=== PATIENT | male | born 1975 | race Caucasian/White ===

== ENCOUNTER 2020-09-25 15:27 | Emergency (ER) | payer BC, SELFPAY ==
--- NOTE | ~2020-09-25 | XR_ITS ---
EXAMINATION: XR chest 2V DATE: 09/25/2020 16:26 INDICATION: Midsternal chest pain. TECHNIQUE: PA and lateral views of the chest were obtained. COMPARISON: None FINDINGS: Automated exposure control and iterative reconstruction technique were employed. The cardiomediastina l silhouette is normal. Mild thoracic spondylosis. Chronic appearing mild anterior wedging at T12. IMPRESSION: 1. No acute cardiopulmonary disease. Reviewed, dictated and finalized at location A.
--- NOTE | 2020-09-25 15:30 | ECG_ITS ---
Measurements Intervals [place] Rate: 111 P: 61 OK: 145 QRS: 46 QRSD: 96 T: -14 QT: 296 QTc: 403 Interpretive Statements SINUS TACHYCARDIA BORDERLINE ST-T WAVE ABNORMALITY- INFERIOR LEADS BASELINE ARTIFACT- II, V3 ABNORMAL ECG Electronically Signed On 09-25-2020 16:06:19 CDT by Layton Bullock D.O.
[2020-09-25 16:00] LABS: Basophils Percent Auto 0.5 % (0.2-1.2); Eosinophils Absolute Auto 0.1 K/mm3 (0-0.3); Eosinophils Percent Auto 1.1 % (0-4.4); Hematocrit 48.8 % (42.0-52.0); Hemoglobin 16.9 g/dL (14.0-18.0); Immature Granulocyte Absolute 0.01 K/mm3 (0.00-0.031); Immature Granulocyte Percent A 0.2 % (0-0.5); Lymphocytes Absolute Auto 1.74 K/mm3 (0.9-3.2); Lymphocytes Percent Auto 27.3 % (18.3-44.2); Mean Corpuscular HGB Conc 34.6 g/dl (32-36); Mean Corpuscular Hemoglobin 31.4 pg (26-34); Mean Corpuscular Volume 90.5 fl (80-100); Monocytes Absolute Auto 0.7 K/mm3 (0.1-0.6); Monocytes Percent Auto 10.4 % (2.6-8.5); Neutrophils Absolute Auto 3.9 K/mm3 (1.3-6.7); Neutrophils Percent Auto 60.5 % (45.5-73.1); Platelet Count Result 177 k/mm3 (150-375); Red Blood Count 5.39 M/mm3 (4.6-6.20); White Blood Count 6.4 K/mm3 (4.5-10.0)
[2020-09-25 16:11] VITALS: BP 129/84; PULSE 96; RESP 18; TEMP 36.9; O2SAT 98
[2020-09-25 16:13] LABS: INR 0.9; Prothrombin Time 11.9 Seconds (11.1-14.7)
[2020-09-25 16:14] LABS: Partial Thromboplastin Time 21.7 SECONDS (22.3-36.8)
[2020-09-25 16:17] LABS: Anion Gap 10 mmol/L (8-16); Blood Urea Nitrogen 17 mg/dL (9-20); Carbon Dioxide 30 mmol/L (22-30); Chloride 101 mmol/L (98-107); Estimated CRCL calculation 78 ml/min; Estimated Glomerular Filt Rate > 60; Glucose 92 mg/dL (65-110); Potassium 3.5 mmol/L (3.4-5.0); Sodium 141 mmol/L (137-145)
[2020-09-25 16:30] LABS: Troponin I < 0.012 ng/mL (0.000-0.034)
[2020-09-25 18:48] VITALS: BP 150/91; PULSE 77; RESP 15; O2SAT 99
[2020-09-25 19:24] LABS: Troponin I < 0.012 ng/mL (0.000-0.034)
[2020-09-25] MEDS: ASPIRIN 81 MG CHEWABLE TABLET 324 MG PO (19:30)
--- NOTE | 2020-09-25 19:38 | ED.CHESTPAIN ---
HPI - Chest Pain General Chief Complaint: Chest Pain Stated Complaint: CHEST PAIN Time Seen by Provider: 09/25/20 19:11 History of Present Illness HPI narrative: Squeezing left sided chest pain since about 1529 today. Assocaited with tingling in left hand and intermittent SOB. Symptoms are improveing. Related Data Allergies Allergy/AdvReac Type Severity Reaction Status Date / Time No Known Drug Allergies Allergy Unknown Verified 06/09/15 10:52 Review of Systems Review of Systems: All systems reviewed & are unremarkable except as noted in HPI and below [facility] Past Medical History Medical History (Updated 09/27/20 @ 17:41 by Kyler Ling MD) HTN (hypertension) Social History Social History (Updated 09/27/20 @ 17:41 by Kyler Ling MD) Smoking status: Never smoker Exam Const: General: healthy appearing and no acute distress Orientation/consciousness: patient oriented x3 HENMT: Head: normal to inspection Neck: Neck: normal visual inspection Chest: Chest palpation & inspection: tenderness Resp: Effort & Inspection: normal respiratory effort Auscultation: clear to auscultation bilaterally, no rales, no rhonchi and no wheezes Cardio: Jugular venous distension: no JVD Rate: regular rate Rhythm: regular rhythm Heart sounds: no murmurs GI: Inspection: non-distended GI Palp: Yes Soft to palpation and No Tenderness to palpation present (GI) Skin: General skin exam: normal color Neuro: General: patient oriented x3 and moves all extremities Speech: normal speech Extrem: General: no edema Psych: Appearance: well kempt Affect: normal affect Course Vital Signs Vital signs: Vital Signs Temperature 36.9 C 09/25/20 16:11 Pulse Rate 96 09/25/20 16:11 Respiratory Rate 18 09/25/20 16:11 Blood Pressure 129/84 09/25/20 16:11 Pulse Oximetry 98 09/25/20 16:11 Temperature 36.9 C 09/25/20 16:11 Pulse Rate 70 09/25/20 20:08 Respiratory Rate 18 09/25/20 20:08 Blood Pressure 131/91 H 09/25/20 20:08 Pulse Oximetry 99 09/25/20 20:08 MDM - Chest Pain Differential Diagnosis Differential diagnosis: Likely unstable angina pectoris, atypical chest pain and st elevation myocardial infarction Medical Records Data Attestation: I reviewed the patient's medical records. Lab Data Attestation: I reviewed the patient's lab results. Result diagrams: 09/25/20 15:44 09/25/20 15:44 Labs: Lab Results 09/25/20 09/25/20 09/25/20 Range/Units 15:44 15:44 15:44 WBC 6.4 (4.5-10.0) K/mm3 RBC 5.39 (4.6-6.20) M/mm3 Hgb 16.9 (14.0-18.0) g/dL Hct 48.8 (42.0-52.0) % MCV 90.5 (80-100) fl MCH 31.4 (26-34) pg MCHC 34.6 (32-36) g/dl RDW 12.0 (11.5-14.5) % Plt Count 177 (150-375) k/mm3 MPV 10.0 (7.4-10.4) fl Immature Gran % (Auto) 0.2 (0-0.5) % Neut % (Auto) 60.5 (45.5-73.1) % Lymph % (Auto) 27.3 (18.3-44.2) % [place] % (Auto) 10.4 H (2.6-8.5) % Eos % (Auto) 1.1 (0-4.4) % Baso % (Auto) 0.5 (0.2-1.2) % Lymph # (Auto) 1.74 (0.9-3.2) K/mm3 [place] # (Auto) 0.7 H (0.1-0.6) K/mm3 Eos # (Auto) 0.1 (0-0.3) K/mm3 Baso # (Auto) 0.0 (0.0-0.1) K/mm3 Abs Immat Gran (auto) 0.01 (0.00-0.031) K/mm3 Absolute Neuts (auto) 3.9 (1.3-6.7) K/mm3 Absolute Nucleated RBC 0.0 (0.0-0.012) K/mm3 Nucleated RBC % 0.0 (0.0-0.2) % PT 11.9 (11.1-14.7) Seconds INR 0.9 APTT 21.7 L (22.3-36.8) SECONDS Sodium 141 (137-145) mmol/L Potassium 3.5 (3.4-5.0) mmol/L Chloride 101 (98-107) mmol/L Carbon Dioxide 30 (22-30) mmol/L Anion Gap 10 (8-16) mmol/L BUN 17 (9-20) mg/dL Creatinine 1.20 (0.7-1.3) mg/dL Estim Creat Clear Calc 78 ml/min Estimated GFR > 60 (59 - ) Glucose 92 (65-110) mg/dL Calcium 10.0 (8.4-10.2) mg/dL Troponin I < 0.012 (0.000-0.034) ng/mL 09/25/20 Range/Units 18:54 WBC (4.5-10.0
[2020-09-25 20:08] VITALS: BP 131/91; PULSE 70; RESP 18; O2SAT 99
== END 2020-09-25 20:10 | disposition home or self-care (01) ==
PROVIDERS: Emergency Medicine; Emergency Provider Emergency Medicine; PCP Internal Medicine
DX: R07.9 Chest pain, unspecified (principal); I10 Essential (primary) hypertension; R00.0 Tachycardia, unspecified; R94.31 Abnormal electrocardiogram [ECG] [EKG]
CPT/HCPCS: 36415; 71046; 80048; 84484; 85025; 85610; 85730; 93005; 99284; A9270

== ENCOUNTER 2022-10-26 10:31 | Emergency (ER) | payer BC, SELFPAY ==
--- NOTE | ~2022-10-26 | XR_ITS ---
XR chest 2V DATE: 10/26/2022 11:03 INDICATION: Chest cold for 5 days TECHNIQUE: 2 views COMPARISON: 09/25/2020 2 view chest FINDINGS: Normal heart size. No hilar or mediastinal enlargement. No pulmonary infiltrate or consolid ation, pleural effusion or pulmonary vascular congestion or pneumothorax. Mild degenerative change of the thoracic spine. IMPRESSION: No active cardiopulmonary disease Reviewed, dictated and finalized at location A.
[2022-10-26 10:36] VITALS: BP 127/84; PULSE 93; RESP 20; TEMP 36.3; O2SAT 100
--- NOTE | 2022-10-26 11:13 | ED.GENADULT ---
HPI - General Adult General Chief complaint: Upper Respiratory Infection Stated complaint: chest cold Source: patient Mode of arrival: ambulatory Limitations: no limitations History of Present Illness HPI narrative: Patient presents for evaluation of sick symptoms for last 10 days. Symptoms include sinus/chest congestion, sore throat and mild cough. No fever, chills, nausea, vomiting, diarrhea or SOB. No recent sick contacts to his knowledge. He says primary care provider 5 days ago was given a prescription for doxycycline, which he has been taking as directed. He has also tried mucinex for his symptoms. He states his throat is usually on painful at night. He does not smoke. Related Data Home Medications Medication Instructions Recorded Confirmed benzonatate 100 mg capsule 100 mg PO DIRECTED 10/26/22 10/26/22 doxycycline hyclate 100 mg capsule 100 mg PO BID 10/26/22 10/26/22 escitalopram oxalate 10 mg tablet 10 mg PO DAILY 10/26/22 10/26/22 lisinopril 5 mg tablet 5 mg PO DAILY 10/26/22 10/26/22 pantoprazole 40 mg tablet,delayed 40 mg PO DAILY 10/26/22 10/26/22 release Allergies Allergy/AdvReac Type Severity Reaction Status Date / Time No Known Drug Allergies Allergy Unknown Other Verified 10/26/22 10:39 Review of Systems Review of Systems: CONSTITUTIONAL: Reports fever and chills. EYES: Denies visual changes, redness, or discharge. ENT: Reports sinus congestion and sore throat. Denies otalgia. CARDIOVASCULAR: Denies chest pain, palpitations, or edema. RESPIRATORY: Reports cough. Denies shortness of breath. GASTROINTESTINAL: Denies abdominal pain, nausea, vomiting, or diarrhea. GENITOURINARY: Denies dysuria or hematuria. SKIN: Denies rash or itching. MUSCULOSKELETAL: Denies back pain, joint pain, or myalgia. NEUROLOGIC: Denies headache, numbness, dizziness, or weakness. PSYCHIATRIC: Denies anxiety or depression. [facility]LY [facility] Past Medical History Medical History Depression HTN (hypertension) Surgical History Surgical History No pertinent past surgical history Family History Family History Mother Family history non-contributory Social History Social History Smoking status: Never smoker Substance use: never Living arrangements: with family Gender identity (if verbalized by the patient): Male Sexual Orientation (if Verbalized by the Patient): Straight or Heterosexual Spiritual care concerns: No Exam Narrative: GENERAL: Well-appearing, well-nourished, and in no acute distress. HEAD: Normocephalic, atraumatic. EYES: PERRLA and EOMI. ENT: Nares clear, no rhinorrhea or epistaxis. Mucous membranes moist. Oropharynx without tonsillar hypertrophy exudate or other lesions. Bilateral TMs pearly de oliveira nonbulging NECK: Supple. No adenopathy or masses. No carotid bruits or JVD CHEST: Clear to auscultation. No respiratory distress. No wheezes rales or rhonchi HEART: Regular rate and rhythm. No murmur heard. Normal peripheral pulses. ABDOMEN: Soft, nontender, nondistended, normal active bowel sounds. EXTREMITIES: Normal range of motion. No edema. SKIN: Warm, dry, no rash. NEURO: No focal deficits. Alert and oriented x3. PSYCH: Normal mood and affect. Course Course Emergency Course: This is a 46-year-old male who presented for evaluation of sick symptoms. Influenza A positive. Strep and COVID negative. Chest x-ray negative. Will discharge with Tamiflu. Would be reasonable to finish course of doxycycline. Follow-up with primary provider go to the emergency department for worsening symptoms. Patient in agreement with plan of care. Level of Care: Express Care Visit Vital Signs Vital signs: Vital Signs Temperature 36.3 C L 10/26/22 10:36
== END 2022-10-26 11:47 | disposition home or self-care (01) ==
PROVIDERS: Emergency Provider Nurse Practitioner; PCP Internal Medicine
DX: J10.1 Influenza due to other identified influenza virus with other respiratory manifestations (principal); Z20.822 Contact with and (suspected) exposure to COVID-19; I10 Essential (primary) hypertension; F32.A Depression, unspecified
CPT/HCPCS: 71046; 87081; 87426; 87804; 87880; 99213; C9803; G0463

== ENCOUNTER 2024-03-29 13:07 | Emergency (ER) | payer BC, SELFPAY ==
[2024-03-29 13:16] VITALS: BP 159/91; PULSE 80; RESP 18; TEMP 36.4; O2SAT 99
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
--- OUTSIDE RECORDS SUMMARY | 2024-03-29 13:43 | XMS_ITS | Encounter Summary ---
Author Organization [facility] Address [address] [facility] [place] [address] Care Team Providers Care Belt Lacer Name Role Phone Scar Olmedo MD Primary Care Provider Encounter Details Date Type Department Care Team (Late st Contact Info) Description 08/08/2017 Ophth Exam [facility] [address] [place] [phone] Radha Peoples MD [address] [place] [phone] Social History Tobacco Use Types Packs/Day Years Used Date Smoking Tobacco: Never Smokeless Tobacco: Never Alcohol Use Standard Drinks/Week Comments Yes 0 (1 standard drink = 0.6 oz pur e alcohol) occasional Sex and Gender Information Value Date Recorded Sex Assigned at Not on file Gender Identity Not on file Sexual Orientation Not on file documented as of this encounter Plan of Treatment Not on file documented as of this encounter Visit Diagnoses Not on filedocumented in this encounter Care Teams Belt Lacer Relationship Specialty Start Date End Date Scar Olmedo MD [address] [place] [phone] PCP - General Internal Medicine 06/09/17 documented as of this encounter
--- OUTSIDE RECORDS SUMMARY | 2024-03-29 13:43 | XMS_ITS | Encounter Summary ---
Author Organization [facility] Address [address] [place] [address] Care Team Providers Care Licensed Optician Name Role Phone Scar Olmedo MD Primary Care Provider Encounter Details Date Type Department Care Team (Late st Contact Info) Description 08/10/2017 Ophth Exam [facility] [address] [place] [address] [phone] Sabine Downey MD [address] [place] [phone] Social History Tobacco Use Types Packs/Day Years Used Date Smoking Tobacco: Never Smokeless Tobacco: Never Alcohol Use Standard Drinks/Week Comments Yes 0 (1 standard drink = 0.6 oz pur e alcohol) occasional Sex and Gender Information Value Date Recorded Sex Assigned at Not on file Gender Identity Not on file Sexual Orientation Not on file documented as of this encounter Functional Status Functional Status Response Date of Assess ment Is person deaf or have serious hearing difficult y? No 08/09/2017 Is person blind or have serious difficulty seein g? No 08/09/2017 Does person have serious dif ficulty walking/climbing stairs? Yes 08/09/2017 Does person have difficulty dressing/bathing? No 08/09/2017 Does person have difficulty doing errands alone? Yes 08/09/2017 Cognitive Status Response Date of Assessm ent Does person have difficulty concentrating/remembering/making decisions? No 08/09/2017 documented as of this encounter Plan of Treatment Not on file documented as of this encounter Visit Diagnoses Not on filedocumented in this encounter Care Teams Licensed Optician Relationship Specialty Start Date End Date Scar Olmedo MD [address] [phone] PCP - General Internal Medicine 06/09/17 documented as of this encounter
--- OUTSIDE RECORDS SUMMARY | 2024-03-29 13:43 | XMS_ITS | Encounter Summary ---
Author Organization [facility] Address [address] [facility] [place] [address] Care Team Providers Care General Manager In Training Name Role Phone Scar Olmedo MD Primary Care Provider Encounter Details Date Type Department Care Team (Late st Contact Info) Description 08/09/2017 Ophth Exam [facility] [address] [place] [phone] Clara Pierre MD [address] [place] [phone] Social History Tobacco Use Types Packs/Day Years [...] on filedocumented in this encounter Care Teams General Manager In Training Relationship Specialty Start Date End Date Scar Olmedo MD [address] [place] [phone] PCP - General Internal Medicine 06/09/17 documented as of this encounter
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
--- OUTSIDE RECORDS SUMMARY | 2024-03-29 13:44 | XMS_ITS | Patient Health Summary ---
Author Organization [facility] Address [address] [place] [address] Care Team Providers Care Eligibility Clerk Name Role Phone Scar Olmedo MD Primary Care Provider Note from [facility],non-owned Affiliates and Associated Physician Practices is amultiple site organization consisting of ambulatory clinics and hospital sitesin [place], [place], [place] and [place]. This disclosure is being madepursuant to the Care Everywhere program and may not contain all information available regarding this patient. Last updated 17.[facility] Allergies No known active allergies Medications * Be aware that medications may not be up to date on this document. Alwaysverify current medications with the patient. * fluticasone propionate (FLONASE) 50 MCG/ACT nasal spray(Started 12/21/2017) Chama 1 spray into each nostril once daily 4 refills remaining * buPROPion XL 24hr (WELLBUTRIN-XL) 150 MG tablet(Started 04/05/2018) * zolpidem CR (AMBIEN CR) 6.25 MG tablet(Started 06/09/2018) Take 1 tablet by mouth nightly as needed for Insomnia Active Problems Problem Noted Date Diagnosed Date [...] Unknown and unspecified causes of morbidity 06/30 Dacryocystitis of right lacrimal sac Immunizations * TDAP (7yrs+)(Given 03/26/2017) Social History Tobacco Use Types Packs/Day Years [...] Mass Index 29.69 08/09/2018 9:04 AM CDT Medical Devices Implanted Type Area Linter Tender Device Identifier Shelf Expiration Date Model / Serial / Lot Stentube Lacrimal Intubation Set Large Diameter Implanted:Qty: 1 on 08/11/2017 by Migdalia Caruso MD at [facility] Right: Eye 04/01/2018 [id number] / / [id number] 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 [employer] Procedures * XR FEMUR RIGHT 2VW(Performed 06/09/2018) Performed for Closed fracture of shaft of right femur with routine healing, unspecified fracture morphology, subsequent encounter * XR ANKLE RIGHT 3VW OR MORE(Performed 06/09/2018) Performed for Open nondisplaced fracture of right talus with routine healing, unspecified fracture morphology, subsequent encounter * WY NASAL ENDOSCOPY,DX(Performed 06/07/2018) Performed for Nldo, acquired (nasolacrimal duct obstruction), right * XR ANKLE RIGHT 3VW OR MORE(Performed 03/31/2018) Performed for Open nondisplaced fracture of right talus with routine healing, unspecified fracture morphology, subsequent encounter * XR FEMUR RIGHT 2VW(Performed 03/31/2018) Performed for Closed fracture of shaft of right femur with routine healing, unspecified fracture morphology, subsequent encounter * XR FEMUR RIGHT 2VW(Performed 01/27/2018) Performed for Closed fracture of shaft of right femur with routine healing, unspecified fracture morphology, subsequent encounter * XR ANKLE RIGHT 3VW OR MORE(Performed 01/27/2018) Performed for Open nondisplaced fracture of right talus with routine healing, unspecified fracture morphology, subsequent encounter * WY NASAL ENDOSCOPY,DX(Performed 12/21/2017) Performed for Nasal crusting, Nasal congestion * XR FEMUR RIGHT 2VW(Performed 10/28/2017) Performed for Closed fracture of shaft of right femur with routine healing, unspecified fracture morphology, subsequent encounter * XR ANKLE RIGHT 3VW OR MORE(Performed 10/28/2017) Performed for Open nondisplaced fracture of right talus with routine healing, unspecified fracture morphology, subsequent encounter * WY NASAL ENDOSCOPY,DX(Performed 09/17/2017) Performed for Right epiphora * XR FEMUR RIGHT 2VW(Performed 08/26/2017) Performed for Open displaced fracture of posterior process of right talus with routine healing * XR ANKLE RIGHT 3VW OR MORE(Performed 08/26/2017) Performed for Open displaced fracture of posterior process of right talus with routine healing * WY ENDO NASAL SINUS BX POLYP DEBRID RT SIDE(Performed 08/17/2017) Performed for Nasal crusting * ENDOTRACHEAL TUBE NOTE(Performed 08/13/2017) * CULTURE EYE+GRAM STAIN(Performed 08/11/2017) * CULTURE ANAEROBE(Performed 08/11/2017) * CULTURE EYE+GRAM STAIN(Performed 08/11/2017) * SEPTOPLASTY(Performed 08/11/2017) Performed for Dacryocystitis of right lacrimal sac * CBC W/O DIFFERENTIAL(Performed 08/09/2017) * CULTURE FUNGUS OTHER+FUNGUS SMEAR(Performed 08/08/2017) * CULTURE ANAEROBE(Performed 08/08/2017) * CULTURE EYE+GRAM STAIN(Performed 08/08/2017) * CT HEAD WO CONTRAST(Performed 08/08/2017) Performed for Facial pain * CT FACIAL BONES W CONTRAST(Performed 08/08/2017) Performed for Facial pain * BASIC METABOLIC PANEL (CALCIUM TOTAL)(Performed 08/08/2017) * CBC W AUTO DIFFERENTIAL(Performed 08/08/2017) * XR ANKLE RIGHT 3VW OR MORE(Performed 07/01/2017) Performed for Open displaced fracture of posterior process of right talus with routine healing * XR FEMUR RIGHT 2VW(Performed 07/01/2017) Performed for Closed fracture of shaft of right femur with routine healing, unspecified fracture morphology, subsequent encounter * REMOVAL EXTERNAL FIXATION LOWER EXTREMITY(Performed 06/09/2017) Performed for Diagnosis unknown * CBC W AUTO DIFFERENTIAL(Performed 06/09/2017) Performed for Arthralgia of right ankle * XR ANKLE RIGHT 3VW OR MORE(Performed 05/27/2017) * XR FEMUR RIGHT 2VW(Performed 05/27/2017) * XR FEMUR RIGHT 2VW(Performed 04/29/2017) * XR ANKLE RIGHT 3VW OR MORE(Performed 04/29/2017) * XR ANKLE RIGHT 3VW OR MORE(Performed 04/09/2017) * XR FEMUR RIGHT 2VW(Performed 04/09/2017) * CBC W AUTO DIFFERENTIAL(Performed 04/09/2017) * TYPE + SCREEN PANEL(Performed 04/09/2017) * CBC W AUTO DIFFERENTIAL(Performed 04/09/2017) * XR CHEST 2VW(Performed 04/02/2017) * CBC W/O DIFFERENTIAL(Performed 04/02/2017) * PHOSPHORUS BLOOD(Performed 04/02/2017) * MAGNESIUM BLOOD(Performed 04/02/2017) * BASIC METABOLIC PANEL (CALCIUM TOTAL)(Performed 04/02/2017) * TYPE + SCREEN PANEL(Performed 04/01/2017) * PHOSPHORUS BLOOD(Performed 04/01/2017) * MAGNESIUM BLOOD(Performed 04/01/2017) * BASIC METABOLIC PANEL (CALCIUM TOTAL)(Performed 04/01/2017) * CBC W/O DIFFERENTIAL(Performed 04/01/2017) * PTT [facility](Performed 04/01/2017) * PT-INR [facility](Performed 04/01/2017) * VITAMIN D 25-HYDROXY(Performed 03/31/2017) * PHOSPHORUS BLOOD(Performed 03/31/2017) * MAGNESIUM BLOOD(Performed 03/31/2017) * BASIC METABOLIC PANEL (CALCIUM TOTAL)(Performed 03/31/2017) * CBC W/O DIFFERENTIAL(Performed 03/31/2017) * GLUCOSE ACCUCHECK(Performed 03/30/2017) * GLUCOSE ACCUCHECK(Performed 03/30/2017) * PHOSPHORUS BLOOD(Performed 03/30/2017) * MAGNESIUM BLOOD(Performed 03/30/2017) * BASIC METABOLIC PANEL (CALCIUM TOTAL)(Performed 03/30/2017) * CBC W/O DIFFERENTIAL(Performed 03/30/2017) * CALCIUM IONIZED WHOLE BLOOD(Performed 03/30/2017) * GLUCOSE ACCUCHECK(Performed 03/29/2017) * GLUCOSE ACCUCHECK(Performed 03/29/2017) * GLUCOSE ACCUCHECK(Performed 03/29/2017) * CT ANKLE RIGHT WO CONTRAST(Performed 03/29/2017) * GLUCOSE ACCUCHECK(Performed 03/29/2017) * GLUCOSE ACCUCHECK(Performed 03/29/2017) * XR CHEST 1VW PORTABLE(Performed 03/29/2017) * CBC W/O DIFFERENTIAL(Performed 03/29/2017) * GLUCOSE ACCUCHECK(Performed 03/29/2017) * GLUCOSE ACCUCHECK(Performed 03/29/2017) * PHOSPHORUS BLOOD(Performed 03/29/2017) * BASIC METABOLIC PANEL (CALCIUM TOTAL)(Performed 03/29/2017) * MAGNESIUM BLOOD(Performed 03/29/2017) * CBC W/O DIFFERENTIAL(Performed 03/29/2017) * BLOOD GASES ARTERIAL(Performed 03/29/2017) * CALCIUM IONIZED WHOLE BLOOD(Performed 03/29/2017) * GLUCOSE ACCUCHECK(Performed 03/28/2017) * CBC W/O DIFFERENTIAL(Performed 03/28/2017) * GLUCOSE ACCUCHECK(Performed 03/28/2017) * CBC W/O DIFFERENTIAL(Performed 03/28/2017) * GLUCOSE ACCUCHECK(Performed 03/28/2017) * CBC W/O DIFFERENTIAL(Performed 03/28/2017) * GLUCOSE ACCUCHECK(Performed 03/28/2017) * XR CHEST 1VW PORTABLE(Performed 03/28/2017) * GLUCOSE ACCUCHECK(Performed 03/28/2017) * PHOSPHORUS BLOOD(Performed 03/27/2017) * BASIC METABOLIC PANEL (CALCIUM TOTAL)(Performed 03/27/2017) * MAGNESIUM BLOOD(Performed 03/27/2017) * CBC W/O DIFFERENTIAL(Performed 03/27/2017) * BLOOD GASES ARTERIAL(Performed 03/27/2017) * CALCIUM IONIZED WHOLE BLOOD(Performed 03/27/2017) * GLUCOSE ACCUCHECK(Performed 03/27/2017) * CBC W/O DIFFERENTIAL(Performed 03/27/2017) * GLUCOSE ACCUCHECK(Performed 03/27/2017) * CBC W/O DIFFERENTIAL(Performed 03/27/2017) * BLOOD GASES ARTERIAL(Performed 03/27/2017) * CBC W/O DIFFERENTIAL(Performed 03/27/2017) * URINALYSIS W/MICROSCOPIC NO CULTURE(Performed 03/27/2017) * DRUG ABUSE PANEL 10-20+ETHANOL URINE NO CONFIRM(Performed 03/27/2017) * XR CHEST 1VW PORTABLE(Performed 03/27/2017) * CBC W/O DIFFERENTIAL(Performed 03/27/2017) * BASIC METABOLIC PANEL (CALCIUM TOTAL)(Performed 03/27/2017) * MAGNESIUM BLOOD(Performed 03/27/2017) * PHOSPHORUS BLOOD(Performed 03/27/2017) * BLOOD GASES ARTERIAL(Performed 03/27/2017) * CALCIUM IONIZED WHOLE BLOOD(Performed 03/27/2017) * XR CHEST 1VW PORTABLE(Performed 03/26/2017) * XR ABDOMEN KUB PORTABLE(Performed 03/26/2017) * CALCIUM IONIZED WHOLE BLOOD(Performed 03/26/2017) * BLOOD GASES ARTERIAL(Performed 03/26/2017) * BASIC METABOLIC PANEL (CALCIUM TOTAL)(Performed 03/26/2017) * PHOSPHORUS BLOOD(Performed 03/26/2017) * MAGNESIUM BLOOD(Performed 03/26/2017) * CBC W/O DIFFERENTIAL(Performed 03/26/2017) * XR FEMUR RIGHT 2VW(Performed 03/26/2017) * XR ANKLE RIGHT 3VW OR MORE(Performed 03/26/2017) * BLOOD GASES ART COMPLETE [facility] OR(Performed 03/26/2017) * SODIUM WHOLE BLOOD(Performed 03/26/2017) * LACTIC ACID WHOLE BLOOD(Performed 03/26/2017) * GLUCOSE WHOLE BLOOD(Performed 03/26/2017) * POTASSIUM WHOLE BLD(Performed 03/26/2017) * CHLORIDE WHOLE BLOOD(Performed 03/26/2017) * CALCIUM IONIZED WHOLE BLOOD(Performed 03/26/2017) * BLOOD GASES ARTERIAL(Performed 03/26/2017) * CULTURE ANAEROBE(Performed 03/26/2017) * CULTURE AEROBIC(Performed 03/26/2017) * BLOOD GASES ART COMPLETE [facility] OR(Performed 03/26/2017) * CT 3D RECON WO INDEPENDENT WKSN(Performed 03/26/2017) * XR TIBIA FIBULA RIGHT 2VW(Performed 03/26/2017) * XR ANKLE RIGHT 2VW(Performed 03/26/2017) * XR FEMUR RIGHT 2VW(Performed 03/26/2017) * XR PELVIS 1 OR 2VW(Performed 03/26/2017) * CT THORACIC SPINE WO CONTRAST(Performed 03/26/2017) * CT FACIAL BONES WO CONTRAST(Performed 03/26/2017) * CT CERVICAL SPINE WO CONTRAST(Performed 03/26/2017) * CT LUMBAR SPINE WO CONTRAST(Performed 03/26/2017) * CT HEAD WO CONTRAST(Performed 03/26/2017) * CT CHEST ABDOMEN PELVIS W CONT(Performed 03/26/2017) * CROSSMATCH RBC LEUKOREDUCED(Performed 03/26/2017) * PREPARE PLATELET PHERESIS UNIT(S)(Performed 03/26/2017) * CROSSMATCH RBC LEUKOREDUCED(Performed 03/26/2017) * CROSSMATCH RBC LEUKOREDUCED(Performed 03/26/2017) * COMPREHENSIVE METABOLIC PANEL(Performed 03/26/2017) * ALCOHOL ETHYL BLOOD(Performed 03/26/2017) * PTT [facility]H(Performed 03/26/2017) * PT-INR [facility](Performed 03/26/2017) * CBC W AUTO DIFFERENTIAL(Performed 03/26/2017) * CBC W AUTO DIFFERENTIAL(Performed 03/26/2017) * TYPE + SCREEN PANEL(Performed 03/26/2017) * XR CHEST 1VW PORTABLE(Performed 03/26/2017) Results * XR FEMUR RIGHT 2VW (06/09/2018 8:36 AM CDT) Only the most recent of11 resultswithin the time period is included. Anatomical Region Laterality Modality Lower Extremity Radiographic Nemo ging 06/09/2018 8:48 AM CDT Impressions 06/09/2018 8:49 AM CDT IMPRESSION: Healed proximal femoral shaft fracture with intramedullary nail. This report was electronically signed by JESUS HIGH MD ??on 06/09/2018 8:49 AM . Narrative 06/09/2018 8:49 AM CDT Exam: ??XR FEMUR RIGHT 2VW History: ??Right Femur Fracture Comparison: 03/31/2018. Findings: A femoral intramedullary nail is present for a fracture of the proximal shaft is unchanged in alignment and appears healed with multi cortical bridging callus/bone. No new fracture is seen. Procedure Note Jesus High MD - 06/09/2018 Exam: XR FEMUR RIGHT 2VW History: Right Femur Fracture Comparison: 03/31/2018. Findings: A femoral intramedullary nail is present for a fracture of the proximal shaft is unchanged in alignment and appears healed with multi cortical bridging callus/bone. No new fracture is seen. IMPRESSION: Healed proximal femoral shaft fracture with intramedullary nail. This report was electronically signed by JESUS HIGH MD on06/09/2018 8:49 AM . Scar Couch MD DIAGNOSTIC IMAGING O RDERABLES * XR ANKLE RIGHT 3VW OR MORE (06/09/2018 8:36 AM CDT) Only the most recent of10 resultswithin the time period is included. Anatomical Region Laterality Modality Lower Extremity Radiographic Nemo ging 06/09/2018 8:45 AM CDT Impressions 06/09/2018 8:48 AM CDT IMPRESSION: Unchanged osseous alignment This report was electronically signed by JESUS HIGH MD ??on 06/09/2018 8:48 AM . Narrative 06/09/2018 8:48 AM CDT Exam: ??XR ANKLE RIGHT 3VW OR MORE History: ??Right Talus Dislocation Comparison: 03/31/2018 Findings: A chronic healed distal fibular fracture is noted. Pin tracks are seen in the tibia and calcaneus. A fracture at the anterior aspect of the calcaneus is unchanged in alignment and appears healing or healed. A small fracture fragment is seen adjacent to the lateral process of the talus, unchanged. The talar dome remains sclerotic, unchanged, which could be due to avascular necrosis. Mild degenerative changes are present, greater at the subtalar joint. Mild soft tissue swelling persists. Procedure Note Jesus High MD - 06/09/2018 Exam: XR ANKLE RIGHT 3VW OR MORE History: Right Talus Dislocation Comparison: 03/31/2018 Findings: A chronic healed distal fibular fracture is noted. Pin tracks are seenin the tibia and calcaneus. A fracture at the anterior aspect of the calcaneus is unchanged in alignment and appears healing or healed. Asmall fracture fragment is seen adjacent to the lateral process of the talus, unchanged. The talar dome remains sclerotic, unchanged, which could bedue to avascular necrosis. Mild degenerative changes are present, greater at the subtalar joint. Mild soft tissue swelling persists. IMPRESSION: Unchanged osseous alignment This report was electronically signed by JESUS HIGH MD on06/09/2018 8:48 AM . Scar Couch MD DIAGNOSTIC IMAGING O RDERABLES * WY NASAL ENDOSCOPY,DX (06/07/2018 3:23 PM CDT) Narrative Vin Lentz MD - 06/07/2018 3:23 PM CDT Vin Lentz MD ? 06/07/2018 ??3:23 PM Due to the findings on physical examination, in correlation with the patient's symptomatology, the decision was made to perform a procedure today in clinic. Consent obtained prior to starting procedure. Procedure note: Procedure: Rigid Nasal Endoscopy Pre Op Dx: ??Nasal secretions Post Op: same Anesthesia: Bilateral Nasal Cavities sprayed with Lidocaine and Neosynephrine Detail: ??Rigid nasal endoscopy performed bilaterally. ??Septum deviated. Right nasal cavity showed jericho os patent above axilla of turbinate, there were no polyps or purulence. ??Left nasal cavity showed narrow airway, there were no polyps or purulence. Vin Lentz MD PROCEDURE/MINOR HAND RGICAL ORDERABLES * WY NASAL ENDOSCOPY,DX (12/21/2017 10:42 AM CDT) Vin Driscoll MD - 12/21/2017 10:42 AM CDT Vin Lentz MD ? 12/21/2017 10:42 AM Due to the findings on physical examination, in correlation with the patient's symptomatology, the decision was made to perform a procedure today in clinic. Consent obtained prior to starting procedure. Procedure note: Procedure: Rigid Nasal Endoscopy Pre Op Dx: ??Nasal crusting, nasal congestion Post Op: same Anesthesia: Bilateral Nasal Cavities sprayed with Lidocaine and Neosynephrine Detail: ??Rigid nasal endoscopy performed bilaterally. ??Septum midline. Right nasal cavity showed stent, with crusting, this was suctioned, there were no polyps and minimal purulence. The DCR jericho - os was intact and patent. ??Left nasal cavity showed normal anatomy. there were no polyps or purulence. Vin Lentz MD PROCEDURE/MINOR HAND RGICAL ORDERABLES * WY NASAL ENDOSCOPY,DX (09/17/2017 12:25 PM CDT) Vin Driscoll MD - 09/17/2017 12:25 PM CDT Vin Lentz MD ? 09/17/2017 12:25 PM Due to the findings on physical examination, in correlation with the patient's symptomatology, the decision was made to perform a procedure today in clinic. Consent obtained prior to starting procedure. Procedure note: Procedure: Rigid Nasal Endoscopy Pre Op Dx: ??Nasal secretions Post Op: same Anesthesia: Bilateral Nasal Cavities sprayed with Lidocaine and Neosynephrine Detail: ??Rigid nasal endoscopy performed bilaterally. ??Septum midline. Right nasal cavity showed crusting surrounding the scott tube. Patent duct. ??Left nasal cavity showed normal anatomy, there were no polyps or purulence. Vin Lentz MD PROCEDURE/MINOR HAND RGICAL ORDERABLES * WY ENDO NASAL SINUS BX POLYP DEBRID RT SIDE (08/17/2017 11:14 AM CDT) Vin Driscoll MD - 08/17/2017 11:14 AM CDT Vin Lentz MD ? 08/17/2017 11:14 AM Due to the findings on physical examination, in correlation with the patient's symptomatology, the decision was made to perform a procedure today in clinic. Consent obtained prior to starting procedure. Procedure: Rigid Nasal Endoscopy with debridement Pre Op Dx: ??Nasal discharge, nasal crusting, NLDO, right Post Op: same Anesthesia: Bilateral Nasal Cavities sprayed with Lidocaine and Neosynephrine Detail: ??Rigid nasal endoscopy performed bilaterally. Right nasal cavity showed significant nasal crusting and discharge. The crusts were removed with a combination of suction and Blakesley forceps. Mucopurulence was suctioned. Stent left in place on the right side with mild crusting remaining on the stent itself. Left side showed one small synechiae in the mid nasal cavity. Otherwise normal anatomy. Vin Lentz MD PROCEDURE/MINOR HAND RGICAL ORDERABLES * ENDOTRACHEAL TUBE NOTE (08/13/2017 2:25 PM CDT) Narrative Jeremiah Steel MD - 08/13/2017 2:25 PM CDT Remington Velasquez Anes Asst ? 08/11/2017 ??2:16 PM Endotracheal Tube Placement: ? Patient Location: OR. Intubation Event Date/Time: ??08/11/2017 1:34 PM Procedure: intubation (71225). Procedure Section: ?? Sedation: under general anesthesia. Indications for Airway Management: ??anesthesia Pretreatment: 100% O2. Induction: standard IV, inhalation and cricoid pressure Patient Position: ??sniffing Mask Ventilation: easy with oral airway. Blade Type: Video Blade Size: 3 Laryngoscopy View: grade 2 (partial cords) Intubation Adjuncts: stylet and video laryngoscope Device: endotracheal tube Placement: oral Tube type: cuff - inflated Tube Size (MM): 8 Depth of Insertion (CM): 24 Measured From: lips Cuff Inflated With: air Number of Attempts: 2. Ventilation between attempts: Yes. Placement Verified By: direct visualization, bilateral breath sounds, chest auscultation and CO2 monitor Tube secured with: ??adhesive tape. Difficult Airway? ??No. Procedure Start Time: 08/11/2017 1:34 PM. Staff Section ?? Anesthesia Provider: REMINGTON VELASQUEZ Performed Provider #1: JEREMIAH STEEL. Additional Comments: 1st attempt made with MAC 3 blade with a Grade IV laryngoscopic view. ??No attempt made to pass OETT. ?? 2nd attempt with CMAC 3 blade. ??Grade II view.. Jeremiah Steel MD GENERAL ANESTHESIA O CORINNE * (ABNORMAL) CULTURE EYE+GRAM STAIN (08/11/2017 2:59 PM CDT) Only the most recent of3 resultswithin the time period is included. Culture Rare Enterobacter aerogenes(A) CARMEN 08/15/2017 11:22 AM T [facility] Culture Rare Staphylococcus epidermidis(A) CARMEN 08/15/2017 11:22 AM CDT [facility] Gram Stain No organisms seen 018 11:22 AM T [facility] Microbiology ENTIRE EYE / Unknown Collection / Unknown 08/11/2017 2:59 PM CDT 08/11/2017 8:00 PM CDT Narrative [facility] - 08/15/2017 11:22 AM CDT Enterobacter, Citrobacter, and Serratia may develop resistance during prolonged therapy with third-generation cephalosporins as a result of derepression of AmpC beta-lactamase. Therefore, isolates that are initially susceptible may become resistant within 3 or 4 days after initiation of therapy. Testing of repeat isolates may be warranted. Organism Antibiotic Method Susceptibility Klebsiella (formerly Enterobacter) aerogenes Amikacin CARMEN <=2 ug/mL: Susceptible Klebsiella (formerly Enterobacter) aerogenes Cefepime CARMEN <=1 ug/mL: Susceptible Klebsiella (formerly Enterobacter) aerogenes Ceftriaxone CARMEN <=1 ug/mL: Susceptible Klebsiella (formerly Enterobacter) aerogenes Ciprofloxacin CARMEN <=0.25 ug/mL: Susceptible Klebsiella (formerly Enterobacter) aerogenes Gentamicin CARMEN <=1 ug/mL: Susceptible Klebsiella (formerly Enterobacter) aerogenes Meropenem CARMEN <=0.25 ug/mL: Susceptible Klebsiella (formerly Enterobacter) aerogenes Piperacillin-tazobactam CARMEN <=4 ug/mL: Susceptible Klebsiella (formerly Enterobacter) aerogenes Tobramycin CARMEN <=1 ug/mL: Susceptible Klebsiella (formerly Enterobacter) aerogenes Trimethoprim-sulfamethoxa zole CARMEN <=20 ug/mL: Susceptible Staphylococcus epidermidis Ciprofloxacin CARMEN <=0.5 ug/mL: Susceptible Staphylococcus epidermidis Clindamycin CARMEN <=0.12 ug/mL: Susceptible Staphylococcus epidermidis Doxycycline CARMEN <=0.5 ug/mL: Susceptible Staphylococcus epidermidis Erythromycin CARMEN >=8 ug/mL: Resistant Staphylococcus epidermidis Gentamicin CARMEN <=0.5 ug/mL: Susceptible Staphylococcus epidermidis Inducible Cli ndamycin Resistance CARMEN NEG ug/mL: Neg Staphylococcus epidermidis Levofloxacin CARMEN <=0.12 ug/mL: Susceptible Staphylococcus epidermidis Linezolid CARMEN 1 ug/mL: Susceptible Staphylococcus epidermidis Oxacillin CARMEN <=0.25 ug/mL: Susceptible Staphylococcus epidermidis Tetracycline CARMEN <=1 ug/mL: Susceptible Staphylococcus epidermidis Trimethoprim- sulfamethoxa zole CARMEN <=10 ug/mL: Susceptible Staphylococcus epidermidis Vancomycin CARMEN <=0.5 ug/mL: Susceptible Vin Lentz MD LAB - MICROBIOLOGY ORDERABLES Performing Organization Address City/[facility]/ZIP Co de Phone Number [facility] [address] [place] [address], [facility] [phone] * (ABNORMAL) CULTURE ANAEROBE (08/11/2017 2:59 PM CDT) Only the most recent of3 resultswithin the time period is included. Pathologist [facility] Culture Light Prevotella denticola(AA) CARMEN 08/19/2017 3:08 PM CDT [facility] Comment:Beta-lactamase posit yue Fluid BODY FLUID SPECIMEN / Unknown Collection / Unknown 08/11/2017 2:59 PM CDT 08/11/2017 8:01 PM CDT iVn Lentz MD LAB - MICROBIOLOGY ORDERABLES Performing Organization Address City/[facility] Co de Phone Number [facility] [address] [place] [address], [facility] [phone] * (ABNORMAL) CBC W/O DIFFERENTIAL (08/09/2017 4:49 AM CDT) Only the most recent of16 resultswithin the time period is included. WBC 5.0 3.5 - 10.5 10? 3 /uL 08/09/2017 5:13 AM CDT [facility] RBC 4.19(L) 4.30 - 5.70 10? 6 /uL 08/09/2017 5:13 AM CDT [facility] Hemoglobin 12.2(L) 13.5 - 17.5 g/dL 08/09/2017 5:13 AM T [facility] Hematocrit 35.4(L) 39.0 - 50.0 % 08/09/2017 5:13 AM T [facility] MCV 84.5 81.0 - 97.0 fL 08/09/2017 5:13 AM T [facility] MCH 29.1 28.0 - 34.0 pg 08/09/2017 5:13 AM T [facility] MCHC 34.5 32.0 - 36.0 g/dL 08/09/2017 5:13 AM [facility] Platelet Count 146(L) 150 - 400 10? 3 /uL 08/09/2017 5:13 AM T [facility] RDW-SD 41.1 36.0 - 50.0 fL 08/09/2017 5:13 AM T [facility] RDW-CV 13.4 11.2 - 14.8 % 08/09/2017 5:13 AM [facility] MPV 9.9 9.3 - 12.8 fL 08/09/2017 5:13 AM [facility] Blood BLOOD SPECIMEN / Unknown Lab Venipuncture / Unknown 08/09/2017 4:49 AM CDT 08/09/2017 4:59 AM CDT Yazmin Tong MD LAB - HEMATOLO GY ORDERABLES Performing Organization Address City/State/[facility] Co de Phone Number [facility] [address] [place] [address] * CULTURE FUNGUS OTHER+FUNGUS SMEAR (08/08/2017 9:20 PM CDT) Culture No fungus isolated CARMEN 09/07/2017 7:40 AM CDT [facility] Fungus Smear No yeast or hyphae seen 09/07/2017 7:40 AM CDT [facility] [facility] MICROBIOLOGY Microbiology ENTIRE EYE / Unknown Collection / Unknown 08/08/2017 9:20 PM CDT 08/08/2017 9:20 PM CDT Clara Pierre MD LAB - MICROBIOL OGY ORDERABLES [facility] MICROBIOLOGY [address] [place], [place] [address], [facility] [phone] * CT FACIAL BONES W CONTRAST (08/08/2017 5:50 PM CDT) Anatomical Region Laterality Modality Head Computed Tomogra phy 08/08/2017 5:50 PM CDT Impressions 08/09/2017 11:53 AM CDT IMPRESSION: 1. No acute intracranial process. 2. Rim enhancing fluid collection in the preseptal right periorbital soft tissues immediately lateral to the right lacrimal bone/nasal process of the right maxillary bone measuring 1.4 x 0.8 x 1.8 cm, consistent with an abscess or an infected dacryocystocele. Right periorbital soft tissue swelling is consistent with overlying cellulitis. There is no CT evidence of post septal or intracranial extension of infection. 3. No acute facial bone fractures identified. 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 Preliminary findings were discussed with Dr. Mar by Dr. Martin on 08/08/2017 at 6:10 PM. I, Dr. VANESSA BENSON M.D. have personally reviewed and interpreted this examination/study. This report was electronically signed by VANESSA BENSON M.D. ??on 08/09/2017 11:53 AM . Narrative 08/09/2017 11:53 AM CDT EXAMINATION: 1. Computed tomography (CT) of the head without contrast 2. CT of the maxillofacial bones, orbits, and paranasal sinuses with contrast HISTORY: Right eye and facial swelling/pain TECHNIQUE: CT of the head was performed without contrast according to standard protocol. CT of the and maxillofacial bones, orbits, and paranasal sinuses was performed after the uneventful administration of according to standard protocol. FINDINGS: Comparison is made with head and face CTs dated 03/26/2017. Head: No acute intra- or extra-axial fluid collections are identified. The ventricles are of normal size, shape, and morphology. The basilar cisterns are patent. No mass effect or midline shift is seen. The de oliveira-white matter differentiation is normal. No acute calvarial fracture is identified. Maxillofacial: Postoperative appearance of open reduction and internal fixation of left rubén-LeFort I, II, and III and right rubén-LeFort II and III type fractures, with anterior maxillary wall internal fixation plates and screws bilaterally, are identified with the fractures further described on the initial face CT dated 03/26/2017. There is significant right facial and right periorbital soft tissue swelling. There is a rim-enhancing fluid collection in the preseptal right periorbital soft tissues immediately lateral to the nasal process of the right maxillary bone measuring 1.4 x 0.8 x 1.8 cm (series 4, image 171 and series 6, image 35) which appears to be separate from the adjacent nasolacrimal duct, likely representing an abscess. There is no CT evidence of post-septal or intracranial extension of infection. The orbits otherwise appear normal. Other than mild ethmoid paranasal sinus disease, the paranasal sinuses are clear. The hard palate, mandible, and temporomandibular joints appear normal. No acute facial bone fractures are identified. The mastoid air cells are clear. No soft tissue abnormality is identified. Procedure Note Vanessa Benson MD - 08/09/2017 EXAMINATION: 1. Computed tomography (CT) of the head without contrast 2. CT of the maxillofacial bones, orbits, and paranasal sinuses with contrast HISTORY: Right eye and facial swelling/pain TECHNIQUE: CT of the head was performed without contrast according to standard protocol. CT of the and maxillofacial bones, orbits, and paranasal sinuses was performed after the uneventful administration of according to standard protocol. FINDINGS: Comparison is made with head and face CTs dated 03/26/2017. Head: No acute intra- or extra-axial fluid collections are identified. The ventricles are of normal size, shape, and morphology. The basilarcisterns are patent. No mass effect or midline shift is seen. The de oliveira-whitematter differentiation is normal. No acute calvarial fracture is identified. Maxillofacial: Postoperative appearance of open reduction and internal fixation of left rubén-LeFort I, II, and III and right rubén-LeFort II and III type fractures, with anterior maxillary wall internal fixation plates and screws bilaterally, are identified with the fractures further describedon the initial face CT dated 03/26/2017. There is significant right facialand right periorbital soft tissue swelling. There is a rim-enhancing fluid collection in the preseptal right periorbital soft tissues immediately lateral to the nasal process of the right maxillary bone measuring 1.4 x 0.8 x 1.8 cm (series 4, image 171 and series 6, image 35) which appearsto be separate from the adjacent nasolacrimal duct, likely representing an abscess. There is no CT evidence of post-septal or intracranialextension of infection. The orbits otherwise appear normal. Other than mildethmoid paranasal sinus disease, the paranasal sinuses are clear. The hardpalate, mandible, and temporomandibular joints appear normal. No acute facialbone fractures are identified. The mastoid air cells are clear. No softtissue abnormality is identified. IMPRESSION: 1. No acute intracranial process. 2. Rim enhancing fluid collection in the preseptal right periorbitalsoft tissues immediately lateral to the right lacrimal bone/nasal process of the right maxillary bone measuring 1.4 x 0.8 x 1.8 cm, consistent withan abscess or an infected dacryocystocele. Right periorbital soft tissue swelling is consistent with overlying cellulitis. There is no CTevidence of post septal or intracranial extension of infection. 3. No acute facial bone fractures identified. 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 Preliminary findings were discussed with Dr. Mar by Dr. Martin on 08/08/2017 at 6:10 PM. I, Dr. VANESSA BENSON M.D. have personally reviewed and interpreted this examination/study. This report was electronically signed by VANESSA BENSON M.D. on 08/09/2017 11:53 AM . Hao Mar MD CT ORDERABLES * CT HEAD WO CONTRAST (08/08/2017 5:50 PM CDT) Only the most recent of2 resultswithin the time period is included. Anatomical Region Laterality Modality Head Computed Tomogra phy 08/08/2017 5:50 PM CDT Impressions 08/09/2017 11:53 AM CDT IMPRESSION: 1. No acute intracranial process. 2. Rim enhancing fluid collection in the preseptal right periorbital soft tissues immediately lateral to the right lacrimal bone/nasal process of the right maxillary bone measuring 1.4 x 0.8 x 1.8 cm, consistent with an abscess or an infected dacryocystocele. Right periorbital soft tissue swelling is consistent with overlying cellulitis. There is no CT evidence of post septal or intracranial extension of infection. 3. No acute facial bone fractures identified. 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 Preliminary findings were discussed with Dr. Mar by Dr. Martin on 08/08/2017 at 6:10 PM. I, Dr. VANESSA BENSON M.D. have personally reviewed and interpreted this examination/study. This report was electronically signed by VANESSA BENSON M.D. ??on 08/09/2017 11:53 AM . Narrative 08/09/2017 11:53 AM CDT EXAMINATION: 1. Computed tomography (CT) of the head without contrast 2. CT of the maxillofacial bones, orbits, and paranasal sinuses with contrast HISTORY: Right eye and facial swelling/pain TECHNIQUE: CT of the head was performed without contrast according to standard protocol. CT of the and maxillofacial bones, orbits, and paranasal sinuses was performed after the uneventful administration of according to standard protocol. FINDINGS: Comparison is made with head and face CTs dated 03/26/2017. Head: No acute intra- or extra-axial fluid collections are identified. The ventricles are of normal size, shape, and morphology. The basilar cisterns are patent. No mass effect or midline shift is seen. The de oliveira-white matter differentiation is normal. No acute calvarial fracture is identified. Maxillofacial: Postoperative appearance of open reduction and internal fixation of left rubén-LeFort I, II, and III and right rubén-LeFort II and III type fractures, with anterior maxillary wall internal fixation plates and screws bilaterally, are identified with the fractures further described on the initial face CT dated 03/26/2017. There is significant right facial and right periorbital soft tissue swelling. There is a rim-enhancing fluid collection in the preseptal right periorbital soft tissues immediately lateral to the nasal process of the right maxillary bone measuring 1.4 x 0.8 x 1.8 cm (series 4, image 171 and series 6, image 35) which appears to be separate from the adjacent nasolacrimal duct, likely representing an abscess. There is no CT evidence of post-septal or intracranial extension of infection. The orbits otherwise appear normal. Other than mild ethmoid paranasal sinus disease, the paranasal sinuses are clear. The hard palate, mandible, and temporomandibular joints appear normal. No acute facial bone fractures are identified. The mastoid air cells are clear. No soft tissue abnormality is identified. Procedure Note Vanessa Benson MD - 08/09/2017 EXAMINATION: 1. Computed tomography (CT) of the head without contrast 2. CT of the maxillofacial bones, orbits, and paranasal sinuses with contrast HISTORY: Right eye and facial swelling/pain TECHNIQUE: CT of the head was performed without contrast according to standard protocol. CT of the and maxillofacial bones, orbits, and paranasal sinuses was performed after the uneventful administration of according to standard protocol. FINDINGS: Comparison is made with head and face CTs dated 03/26/2017. Head: No acute intra- or extra-axial fluid collections are identified. The ventricles are of normal size, shape, and morphology. The basilarcisterns are patent. No mass effect or midline shift is seen. The de oliveira-whitematter differentiation is normal. No acute calvarial fracture is identified. Maxillofacial: Postoperative appearance of open reduction and internal fixation of left rubén-LeFort I, II, and III and right rubén-LeFort II and III type fractures, with anterior maxillary wall internal fixation plates and screws bilaterally, are identified with the fractures further describedon the initial face CT dated 03/26/2017. There is significant right facialand right periorbital soft tissue swelling. There is a rim-enhancing fluid collection in the preseptal right periorbital soft tissues immediately lateral to the nasal process of the right maxillary bone measuring 1.4 x 0.8 x 1.8 cm (series 4, image 171 and series 6, image 35) which appearsto be separate from the adjacent nasolacrimal duct, likely representing an abscess. There is no CT evidence of post-septal or intracranialextension of infection. The orbits otherwise appear normal. Other than mildethmoid paranasal sinus disease, the paranasal sinuses are clear. The hardpalate, mandible, and temporomandibular joints appear normal. No acute facialbone fractures are identified. The mastoid air cells are clear. No softtissue abnormality is identified. IMPRESSION: 1. No acute intracranial process. 2. Rim enhancing fluid collection in the preseptal right periorbitalsoft tissues immediately lateral to the right lacrimal bone/nasal process of the right maxillary bone measuring 1.4 x 0.8 x 1.8 cm, consistent withan abscess or an infected dacryocystocele. Right periorbital soft tissue swelling is consistent with overlying cellulitis. There is no CTevidence of post septal or intracranial extension of infection. 3. No acute facial bone fractures identified. 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 Preliminary findings were discussed with Dr. Mar by Dr. Martin on 08/08/2017 at 6:10 PM. I, Dr. VANESSA BENSON M.D. have personally reviewed and interpreted this examination/study. This report was electronically signed by VANESSA BENSON M.D. on 08/09/2017 11:53 AM . Hao Mar MD CT ORDERABLES * (ABNORMAL) CBC W AUTO DIFFERENTIAL (08/08/2017 4:55 PM CDT) Only the most recent of6 resultswithin the time period is included. WBC 6.8 3.5 - 10.5 10? 3 /uL 08/08/2017 4:59 PM CDT [facility] RBC 4.66 4.30 - 5.70 10? 6 /uL 08/08/2017 4:59 PM T [facility] Hemoglobin 13.7 13.5 - 17.5 g/dL 08/08/2017 4:59 PM T [facility] Hematocrit 39.2 39.0 - 50.0 % 08/08/2017 4:59 PM T [facility] MCV 84.1 81.0 - 97.0 fL 08/08/2017 4:59 PM T [facility] MCH 29.4 28.0 - 34.0 pg 08/08/2017 4:59 PM CDT [facility] MCHC 34.9 32.0 - 36.0 g/dL 08/08/2017 4:59 PM [facility] Platelet Count 148(L) 150 - 400 10? 3 /uL 08/08/2017 4:59 PM [facility] RDW-SD 40.3 36.0 - 50.0 fL 08/08/2017 4:59 PM [facility] RDW-CV 13.4 11.2 - 14.8 % 08/08/2017 4:59 PM [facility] MPV 10.1 9.3 - 12.8 fL 08/08/2017 4:59 PM [facility] Neutrophils % 69.6 35.0 - 70.0 % 08/08/2017 4:59 PM [facility] Lymphocytes % 18.5(L) 19.7 - 55.1 % 08/08/2017 4:59 PM [facility] Monocytes % 10.6 3.0 - 15.0 % 08/08/2017 4:59 PM [facility] Eosinophils % 0.9 0.0 - 6.0 % 08/08/2017 4:59 PM [facility] Basophil % 0.4 0.0 - 1.5 % 08/08/2017 4:59 PM [facility] Neutrophils Absolute 4.7 1.6 - 7.0 10? 3 /uL 08/08/2017 4:59 PM [facility] Lymphocyte Absolute 1.3 0.8 - 2.9 10? 3 /uL 08/08/2017 4:59 PM [facility] Monocytes Absolute 0.72(H) 0.14 - 0.66 10? 3 /uL 08/08/2017 4:59 PM [facility] Eosinophils Absolute 0.06 0.00 - 0.22 10? 3 /uL 08/08/2017 4:59 PM [facility] Basophils Absolute 0.03 0.00 - 0.06 10? 3 /uL 08/08/2017 4:59 PM [facility] Immature Granulocytes % 0.1 0.0 - 1.0 % 08/08/2017 4:59 PM [facility] Blood BLOOD SPECIMEN / Unknown Venipuncture / Unknown 08/08/2017 4:55 PM CDT 08/08/2017 4:55 PM CDT Hao Mar MD LAB - HEMATOLOGY ORD ERABLES [address] [phone] * BASIC METABOLIC PANEL (CALCIUM TOTAL) (08/08/2017 4:55 PM CDT) Only the most recent of9 resultswithin the time period is included. BUN 10 7 - 26 mg/dL 08/08/2017 5:[address] [facility] Creatinine 1.1 0.6 - 1.2 mg/dL 08/08/2017 5:23 PM [facility] Sodium 138 136 - 145 mmol/L 08/08/2017 5:23 PM [facility] Potassium 3.9 3.5 - 4.5 mmol/L 08/08/2017 5:23 PM [facility] Chloride 102 98 - 107 mmol/L 08/08/2017 5:23 PM [facility] CO2 27 22 - 29 mmol/L 08/08/2017 5:23 PM [facility] Glucose 106 70 - 115 mg/dL 08/08/2017 5:23 PM [facility] Calcium 9.6 8.4 - 10.2 mg/dL 08/08/2017 5:23 PM [facility] Anion Gap 13 8 - 18 08/08/2017 5:23 PM [facility] BUN/Creatinine Ratio 9 7 - 23 08/08/2017 5:23 PM [facility] Osmolality Calculated 285 270 - 300 mOsm/kg 08/08/2017 5:23 PM [facility] eGFR >60 >60 mL/min/1.7 3 m2 08/08/2017 5:23 PM [facility] Blood BLOOD SPECIMEN / Unknown Venipuncture / Unknown 08/08/2017 4:55 PM CDT 08/08/2017 4:55 PM CDT Hao Mar MD LAB - CHEMISTRY ORDE RABEDDIE [address] [phone] * TYPE + SCREEN PANEL (04/09/2017 11:02 AM [employer] WORK[employer]) Only the most recent of3 resultswithin the time period is included. Typem A POS [facility] Antibody Screen NEG [facility] Blood specimen (specimen) 04/09/2017 11:02 AM [employer] WORKER 04/09/2017 11:24 AM [employer] WORK[employer] Siomara Soto MD LAB - BLOOD BANK ORD ERABLES [facility] [address] * XR CHEST 2VW (04/02/2017 4:46 AM [employer] WORKER) Anatomical Region Laterality Modality Chest Other Impressions 04/02/2017 4:03 PM [employer] WORK[employer] IMPRESSION: Bibasilar atelectasis has decreased. There is no pleural effusion or pneumothorax. The cardiac and mediastinal silhouettes are normal. Multiple right-sided rib fractures are better seen on the prior CT. Dictated by Benito Wolfe MD (vice president of finance). IDr. EDISON M.D. have personally reviewed and interpreted this examination/study. This report was electronically signed by EDISON YANEZ M.D. ??on 04/02/2017 4:03 PM . Narrative 04/02/2017 4:03 PM [employer] WORK[employer] EXAMINATION: XR CHEST PA AND LATERAL HISTORY: trauma follow up for rib fractures and pulmonary contusions COMPARISON: Comparison is made with a study from 03/29/2017. FINDINGS/ Procedure Note Edison Yanez MD - 06/03/2017 EXAMINATION: XR CHEST PA AND LATERAL HISTORY: trauma follow up for rib fractures and pulmonary contusions COMPARISON: Comparison is made with a study from 03/29/2017. FINDINGS/ IMPRESSION IMPRESSION: Bibasilar atelectasis has decreased. There is no pleural effusion orpneumothorax. The cardiac and mediastinal silhouettes are normal. Multipleright-sided rib fractures are better seen on the prior CT. Dictated by Benito Wolfe MD (vice president of finance). I, Dr. EDISON YANEZ M.D. have personally reviewed and interpreted thisexamination/study. This report was electronically signed by EDISON YANEZ M.D. on 04/02/20174:03 PM . Erna MARTINEZ DIAGNOSTIC IMAG ING ORDERABLES * PHOSPHORUS BLOOD (04/02/2017 3:02 AM [employer] WORKER) Only the most recent of8 resultswithin the time period is included. Phosphorus 3.3 2.3 - 4.7 mg/dL [facility] Blood specimen (specimen) BLOOD SPECIMEN / Unknown 04/02/2017 3:02 AM [employer]ISSON WORKER 04/02/2017 3:46 AM [employer]SON WORKER Ernashelly Calerohaleigh [facility] LAB - CHEMISTRY ORDERABLES Performing Organization Address [facility]/ZIP Co de Phone Number [address] [phone] * MAGNESIUM BLOOD (04/02/2017 3:02 AM CAISSON WORKER) Only the most recent of8 resultswithin the time period is included. Magnesium 1.9 1.6 - 2.6 mg/dL [facility] Blood specimen (specimen) BLOOD SPECIMEN / Unknown 04/02/2017 3:02 AM [employer]ISSON WORKER 04/02/2017 3:46 AM [employer]ISSON WORKER Eran S Luis Armando [facility] LAB - CHEMISTRY ORDERABLES Performing Organization Address City/[facility]/ZIP Co de Phone Number [address] [phone] * PTT [facility] (04/01/2017 3:31 AM [employer]SON WORKER) Only the most recent of2 resultswithin the time period is included. APTT 30.0 23.0 - 38.4 Seconds [facility] Comment:Suggested therapeuti c range for full dose I.V. heparin therapy for venous thromboembolism is 66.0-91.0 seconds. Blood specimen (specimen) BLOOD SPECIMEN / Unknown 04/01/2017 3:31 AM [employer]ISSON WORKER 04/01/2017 3:42 AM [employer]ISSON WORKER Narrative [facility] - 04/01/2017 3:54 AM CAISSON WORKER Is patient on Heparin, Argatroban or Dabigatran?->N Erna Caleros HOSPITAL MEDICINE DIRECTOR-CONSUMER RECRUITER LAB - COAGULATI ON ORDERABLES Performing Organization Address [facility] Co de Phone Number [address] [phone] * PT-INR [facility] (04/01/2017 3:31 AM [employer]ISSON WORKER) Only the most recent of2 resultswithin the time period is included. PT 14.5 12.1 - 14.8 Seconds [facility] INR 1.1 See Comment [facility] Comment: Suggested therapeutic range for low-intensity coumadin therapy for venous thromboembolism prophylaxis is an INR of 2.0-3.0. ??For high risk patients (Mitral Valve Prosthesis, Atrial Fibrillation, history of TIA/stroke), suggested prophylactic therapeutic range is an INR of 2.5-3.5. Blood specimen (specimen) BLOOD SPECIMEN / Unknown 04/01/2017 3:31 AM [employer]ISSON WORKER 04/01/2017 3:42 AM CAISSON WORKER Narrative [facility] - 04/01/2017 3:54 AM CAISSON WORKER Is patient on Heparin, Argatroban or Dabigatran?->N Erna Caleros HOSPITAL MEDICINE DIRECTOR-CONSUMER RECRUITER LAB - COAGULATI ON ORDERABLES Performing Organization Address [facility] Co de Phone Number [address] [phone] * (ABNORMAL) VITAMIN D 25-HYDROXY (03/31/2017 9:29 AM [employer]ISSON WORKER) Vitamin D, 25 Hydroxy 13.6(L) See comment: ng/mL [facility] Comment: The recommendations for 25-Hydroxy Vitamin D clinical decision points are as follows: ? Deficient: ? <20.0 ng/mL ? Insufficient: ??20.0 - 29.9 ng/mL ? Sufficient: ? > or =30.0 ng/mL If the 25-Hydroxy Vitamin D results are inconsitent with clinical evidence, it is recommended that follow-up testing using a method such as LC/MS/MS be performed to confirm the result. Reference: ?The Endocrine Society Clinical Practice Guidelines. 2011 ? Blood specimen (specimen) BLOOD SPECIMEN / Unknown 03/31/2017 9:29 AM [employer]ISSON WORKER 03/31/2017 9:40 AM [employer]SON WORKER Eneida Dias APRN-HYDROELECTRIC MACHINERY MECHANIC LAB - CHEMISTR Y ORDERABLES Performing Organization Address City/[facility] Co de Phone Number [address] [phone] * (ABNORMAL) GLUCOSE ACCUCHECK (03/30/2017 8:17 AM [employer]ISSON WORKER) Only the most recent of16 resultswithin the time period is included. Glucose, Fingerstick 133(H) 70-115mg/d L mg/dL [facility] NIMA BLANCO) Comment:Supervisor Rides: ALEX TEJADA 03/30/2017 8:17 AM [employer]SON WORKER Fredi Santos MD LAB - CHEMISTRY FORTUNATO BOB Performing Organization Address [facility] Co de Phone Number [facility] NIMA (LISBETH) * (ABNORMAL) CALCIUM IONIZED WHOLE BLOOD (03/30/2017 3:34 AM CAISSON WORKER) Only the most recent of6 resultswithin the time period is included. Ionized Calcium Whole Blood 1.12 mmol/L [facility] Adjusted Ionized Calcium 1.16(L) 1.19 - 1.34 mmol/L [facility] pH Whole Blood 7.48(H) 7.35 - 7.45 [facility] Blood specimen (specimen) BLOOD SPECIMEN / Unknown 03/30/2017 3:34 AM CAISSON WORKER 03/30/2017 3:34 AM [employer]ISSON WORKER Fredi Santos MD LAB - CHEMISTRY ARIELShelly QUINONESEDDIE [facility] Organization Address City/State/ZIP Co de Phone Number [facility] [address] [place] [address] * CT ANKLE RIGHT WO CONTRAST (03/29/2017 1:00 PM CAISSON WORKER) Anatomical Region Laterality Modality Lower Extremity Other Impressions 03/29/2017 2:08 PM [employer] WORKER IMPRESSION: 1. Status post open reduction and internal fixation of the subtalar fracture dislocation. The patient is also status post fixation of the talus and navicular with K wire as well as the first metatarsal shaft and calcaneus with intact screws. 2. Fractures of the distal lateral tibia along the joint space, talus, calcaneus, and cuboid as described above. Multiple small bone fragments along the anterior aspect of the distal tibia may represent ossicles or fractures. Dictated by Vin Pascual MD (vice president of finance). I, Dr. THOMAS JUÁREZ M.D. have personally reviewed and interpreted this examination/study. This report was electronically signed by THOMAS JUÁREZ M.D. ??on 03/29/2017 2:08 PM . Narrative 03/29/2017 2:08 PM [employer] WORK[employer] EXAMINATION: Computed tomography (CT) of the right ankle without contrast HISTORY: Right ankle fracture/dislocation status post fixation. TECHNIQUE: CT of the right ankle was performed without contrast according to standard protocol. COMPARISON: Comparison is made with studies from 03/26/2017. FINDINGS: The patient is status post open reduction and internal fixation of the subtalar fracture dislocation. The patient is status post fixation of the talus and navicular with a K wire. The patient is also status post fixation of the calcaneus and first metatarsal shaft with intact screws. This instrumentation is intact without evidence of failure. A mildly displaced lateral tibial diametaphyseal fracture is unchanged in alignment. Mildly comminuted fractures of the inferior aspect of the talus and calcaneus are present. Nondisplaced fractures of the cuboid are present. Multiple foci of gas in and around the talus are likely postoperative. There are multiple bone fragments along the anterior aspect of the distal tibia which may represent ossicles or fractures. There is a healed fracture of the distal fibula. Bone density is normal. There is diffuse soft tissue swelling about the foot. An ankle joint effusion is present. Procedure Note Cristy Juárez MD - 06/03/2017 EXAMINATION: Computed tomography (CT) of the right ankle withoutcontrast HISTORY: Right ankle fracture/dislocation status post fixation. TECHNIQUE: CT of the right ankle was performed without contrast accordingto standard protocol. COMPARISON: Comparison is made with studies from 03/26/2017. FINDINGS: The patient is status post open reduction and internal fixation of thesubtalar fracture dislocation. The patient is status post fixation of thetalus and navicular with a K wire. The patient is also status postfixation of the calcaneus and first metatarsal shaft with intact screws. This instrumentation is intactwithout evidence of failure. A mildly displaced lateral tibialdiametaphyseal fracture is unchanged in alignment. Mildly comminutedfractures of the inferior aspect of the talus and calcaneus are present. Nondisplaced fractures of the cuboid are present.Multiple foci of gas in and around the talus are likely postoperative.There are multiple bone fragments along the anterior aspect of the distaltibia which may represent ossicles or fractures. There is a healed fracture of the distal fibula. Bonedensity is normal. There is diffuse soft tissue swelling about the foot.An ankle joint effusion is present. IMPRESSION IMPRESSION: 1. Status post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 shape, and morphology. The basilar cisternsare patent. No mass effect or midline shift is seen. The de oliveira-white matterdifferentiation is normal. No acute calvarial fracture is identified. Right parietal soft tissue swelling ispresent. Maxillofacial: There are left rubén-LeFort type I, II, and III type fractures and righthemi- LeFort type II and III fractures consisting of mildly displacedcomponents through the lateral orbital alcaraz, zygomatic arches,nasofrontal suture, and medial and lateral pterygoid plates bilaterally as well as the left nasomaxillary spine.Displaced fractures also involve the bilateral orbital floors, laminapapyraceas, all alcaraz of the maxillary sinuses, ethmoid air cells, nasalseptum, bilateral nasal bones, and nasal septum. There is small volume left intraorbital hemorrhage. Soft tissuegas is seen in both orbits without significant right intraorbitalhemorrhage. There is associated hemorrhage into the paranasal sinuses.There is a mildly displaced fracture of the nasal process of the maxillary bone. A fracture line extends into the lefttemporomandibular joint. The hard palate, mandible, and righttemporomandibular joints appear normal. No fracture line is identifiedextending into the cranial vault. The mastoid air cells are clear. There is diffuse soft tissue gas and swellingthroughout the face. Three-dimensional rendering of the face: Three-dimensional rendering confirms the presence of facial bone fractureswhich are fully characterized above. Cervical spine: The alignment is normal. Vertebral bodies are normal in height. There is anondisplaced fracture of the right C7 transverse process. Other thanmiddle atlantoaxial joint osteoarthritis, the craniocervical junctionappears normal. The intervertebral discs appear normal. No central canal stenosis is seen. There is mild tomoderate C6-7 and C7-T1 facet osteoarthritis. The uncovertebral jointsappear normal. No neural foraminal stenosis is seen. Soft tissue gas isseen in the anterior superior left neck, related to the multiple facial fractures described above. Thoracic spine: The alignment is normal. Vertebral bodies are normal in height withoutevidence of acute fracture. The intervertebral discs appear normal. Nocentral canal stenosis is seen. The facets appear normal. No neuralforaminal stenosis is seen. There is a nondisplaced fracture of the posterior right 1st rib. There issubsegmental atelectasis in the dependent portions of the lung bases.Fluid is seen in the thoracic esophagus. Lumbar spine: The alignment is normal. Vertebral bodies are normal in height withoutevidence of acute fracture. There is mild disc bulge at L3-4 and L4-5. Nocentral canal stenosis is seen. There is mild facet osteoarthritis atmultiple levels. No neural foraminal stenosis is seen. A partially imaged hypoattenuating lesion withperipheral nodular enhancement in the right hepatic lobe is consistentwith a hemangioma. Contrast is seen in the renal collecting systems. IMPRESSION IMPRESSION: 1. Multiple displaced midface fractures as described above including lefthemi- LeFort I, II, and III and right rubén-LeFort II and III typefractures. 2. Nondisplaced right C7 transverse process and posterior right 1st ribfractures. 3. No acute intracranial process. 4. No evidence of acute fracture in the thoracic or lumbar spine. 5. Three-dimensional rendering of the face for surgical planning. This report was approved by Dariusz Royal on 03/26/2017 11:50 AM . I, Dr. POLINA PAULA M.D. have personally reviewed and interpreted thisexamination/study. This report was electronically signed by POLINA PAULA M.D. on 03/26/201711:52 AM . Fredi Santos MD CT ORDERABLES * CROSSMATCH RBC LEUKOREDUCED (03/26/2017 10:03 AM CAISSON WORKER) Only the most recent of3 resultswithin the time period is included. Unit RBC-WBCD [id number] transfused [facility] (BEAKER) Unit ABO A [facility] (BEAKER) Unit Rh POS [facility] (BEAKER) Unit Number [id number] [facility] (BEAKER) Unit Status Transfused [facility] OD [facility] (BEAKER) 03/26/2017 10:0 3 AM CAISSON WORKER 03/26/2017 10:03 AM CAISSON WORKER Narrative [facility]BEAKER) - 03/26/2017 10:03 AM CAISSON WORKER # of Units->1 Fredi Santos MD LAB - BLOOD BANK ORD ERABLES [facility] (BEAKER) * PREPARE PLATELET PHERESIS UNIT(S) (03/26/2017 10:03 AM CAISSON WORKER) Irradiated Platelet [id number] transfused [facility] (BEAKER) Unit ABO A [facility] (BEAKER) Unit Rh POS [facility] (BEAKER) Unit Number [id number] [facility] (BEAKER) Unit Status Transfused [facility] (BEAKER) 03/26/2017 10:0 3 AM CAISSON WORKER 03/26/2017 10:03 AM CAISSON WORKER Narrative [facility] (BEAKER) - 03/26/2017 10:03 AM CAISSON WORKER # of Units->1 Fredi Santos MD LAB - BLOOD BANK ORD ERABLES Performing Organization Address City/[facility]/ZIP Co de Phone Number [facility] (BEAKER) * (ABNORMAL) COMPREHENSIVE METABOLIC PANEL (03/26/2017 9:35 AM CAISSON WORKER) BUN 18 7 - 26 mg/dL [facility] Creatinine 1.2 0.6 - 1.2 mg/dL [facility] Sodium 140 136 - 145 mmol/L [facility] Potassium 3.3(L) 3.5 - 4.5 mmol/L [facility] Chloride 104 98 - 107 mmol/L [facility] CO2 28 22 - 29 mmol/L [facility] Glucose 186(H) 70 - 115 mg/dL [facility] Calcium 8.4 8.4 - 10.2 mg/dL [facility] Protein Total 6.2 6.0 - 8.3 g/dL [facility] Albumin 3.8 3.4 - 5.0 g/dL [facility] Bilirubin Total 0.4 0.2 - 1.2 mg/dL [facility] Alkaline Phosphatase 39(L) 40 - 150 Units/L [facility] ALT 105(H) 0 - 55 Units/L [facility] AST 101(H) 5 - 34 Units/L [facility] Anion Gap 11 8 - 18 [facility] BUN/Creatinine Ratio 15 7 - 23 [facility] Osmolality Calculated 297 270 - 300 mOsm/kg [facility] Albumin/Globulin Ratio 1.6 1.1 - 2.3 [facility] eGFR 54(L) >60 mL/min/1.7 3 m2 [facility] Blood specimen (specimen) BLOOD SPECIMEN / Unknown 03/26/2017 9:35 AM CAISSON WORKER 03/26/2017 9:58 AM CAISSON WORKER Fredi Santos MD LAB - CHEMISTRY FORTUNATO BOB Performing Organization Address City/[facility]/ZIP Co de Phone Number [address] [phone] * ALCOHOL ETHYL BLOOD (03/26/2017 9:35 AM CAISSON WORKER) Interpretation Ethanol None Detected None Detected mg/dL [facility] Comment:Ethanol levels less than 10 mg/dL are resulted as None detected . Blood specimen (specimen) BLOOD SPECIMEN / Unknown 03/26/2017 9:35 AM CAISSON WORKER 03/26/2017 9:58 AM CAISSON WORKER Fredi Santos MD LAB - CHEMISTRY FORTUNATO BOB [address] [phone] Care Teams Eligibility Clerk Relationship Specialty Start Date End Date Scar Olmedo MD [address] [place] [id number] PCP - General Internal Medicine 06/09/17
--- OUTSIDE RECORDS SUMMARY | 2024-03-29 13:44 | XMS_ITS | Encounter Summary ---
Author Organization [facility] Healthcare Address [address] [place] [address] Care Team Providers Care Inspector Brake Lining Name Role Phone Scar Olmedo MD Primary Care Provider Reason for Visit * Reason Onset Date Comments Cyst 03/29/2024 Encounter Details Date Type Department Care Team (Late st Contact Info) Description 03/29/[address] 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 Onset 2 wks ago. Pt states he got a bruise during martial arts practice and over the last few days he began to feel a knot in area of bruise that is painful to the touch. Pt states pain is there but not as noticeable without palpation. Pt states lump is the size of a golf ball or bird egg. Pt has poor circulation in RLE and is concerned about possible blood clot. Denies itch, shortness of breath, chest pain, fever, swelling, redness. No OV available to meet pt scheduled. Pt will reach out to CC or UC to follow up with symptoms. Advised to call back with new or worsening symptoms. Pt verbalized understanding and agreement. Reason for Disposition Small swelling or lump present > 1 week Protocols used: Skin Lump or Localized Mlnjgedu-Dlvxo-WH HROOM MOTHER * Telephone Encounter - Anh Coon RN - 03/29/2024 11:06 AM LUNCHROOM MOTHER Regarding: Golf ball sized knot under a bruise ----- Message from Cristy Max sent at 03/29/2024 10:56 AM LUNCHROOM MOTHER ----- Symptom Based Call Chief Complaint(s): Concerned for Blood Clot: golf ball sized knot under a bruise Duration: 2 weeks or less What type of symptom(s) is the patient experiencing? Red Flag. Is the patient concerned they are experiencing a medical emergency requiring an ambulance? No Additional Comments: Patient is concerned that he may have a blood clot in the right leg. There is a bruise in the calf (happened 2 weeks ago), on the inside, that now has a knot, appeared in the last couple of days & is golf ball sized, under it & hurts to touch. He has compromised blood flow to the right lower ext. Does message need to be routed? Yes-Action Needed HROOM MOTHER documented in this encounter Plan of Treatment Not on file documented as of this encounter Visit Diagnoses Not on filedocumented in this encounter Additional Health Concerns Infection Onset Date Last Indicated Resolved Time C. difficile Comment:Germ watcher auto flagging 04/02/2013 04/02/2013 documented as of this encounter Care Teams Inspector Brake Lining Relationship Specialty Start Date End Date Scar Olmedo MD PCP - General 05/30/16 documented as of this encounter
--- OUTSIDE RECORDS SUMMARY | 2024-03-29 13:44 | XMS_ITS | Clinical Summary ---
Author Organization [facility] Address [address] [place] [address] Care Team Providers Care Cocoa Bean Cleaner Name Role Phone Scar Olmedo MD Primary Care Provider Source Comments [facility],non-owned Affiliates and Associated Physician Practices is amultiple site organization consisting of ambulatory clinics and hospital sitesin [place], [place], [place] and [place]. This disclosure is being madepursuant to the Care Everywhere program and may not contain all information available regarding this patient. Last updated 17.[facility] Allergies No known active allergies Medications * Be aware that medications may not be up to date on this document. Alwaysverify current medications with the patient. Medication Sig Dispensed Refills Start Date End Date Status fluticasone propionate (FLONASE) 50 MCG/ACT nasal spray [place] 1 spray into each nostril once daily [...] Administration Dates Next Due TDAP (7yrs+) 03/26/2017 Family History Medical History Relation Name Comments Diabetes - Type 2 Mother Other - Cardiac Mother Relation Name Status Comments Mother Social History Tobacco Use Types Packs/Day Years [...] Mass Index 29.69 08/09/2018 9:04 AM CDT Plan of Treatment Health Maintenance Due Date Last Done Comments COLOGUARD (AGES 45-75) - COLON CA SCREENING 1973 COLON MONITORING 1973 COLONOSCOPY - COLON CA SCREENING 1973 CT COLONOGRAPHY - COLON CA SCREENING 1973 Colorectal Cancer Screening 1973 FIT - COLON CA SCREENING 1973 FLEX SIG - COLON CA SCREENING 1973 LIPID TESTING 1973 HIV SCREENING 1988 HEPATITIS C SCREENING 11/30/1991 HEPATITIS B VACCINE (1 of 3 - 19+ 3-dose series) 1992 SCREENING FOR DIABETES 08/08/2020 8, 04/02/2017, 04/01/2017, Additional history exists COVID-19 VACCINE (1 - ) 11/01/2023 INFLUENZA VACCINE (#1) 2023 PNEUMOCOCCAL VACCINE 50+ (1 of 1 - PCV) 12/05/2023 ZOSTER VACCINE (1 of 2) 12/05/2023 DEPRESSION SCREENING 03/02/2024 DTAP/TDAP/TD VACCINES (2 - Td or Tdap) 03/26/2027 03/26/2017 HIB VACCINE Aged Out No longer eligi ble based on patient's age to complete this topic HPV VACCINE Aged Out No longer eligi ble based on patient's age to complete this topic MENINGOCOCCAL (Group B) VACCINE Aged Out No longer eligible based on patient's age to complete this topic MENINGOCOCCAL VACCINE Aged Out No vaibhav janie eligible based on patient's age to complete this topic PNEUMOCOCCAL VACCINE Aged Out No long er eligible based on patient's age to complete this topic Medical Devices Implanted Type Area Travel Ot Device Identifier Shelf Expiration Date Model / Serial / Lot Stentube Lacrimal Intubation Set Large Diameter Implanted:Qty: 1 on 08/11/2017 by Migdalia Caruso MD at [facility] Right: Eye 04/01/2018 [id number] / / [id number] Description:Travel Ot: [employer] Maker Procedures Procedure Name Priority Date/Time Associated Diagnosis Comments BASIC METABOLIC PANEL (CALCIUM TOTAL) STAT 08/08/2017 4:55 PM CDT from Last 3 Months or Most Recently Relevant to Health Maintenance Results * BASIC METABOLIC PANEL (CALCIUM TOTAL) (08/08/2017 4:55 PM CDT) BUN 10 7 - 26 mg/dL 08/08/2017 5:23 PM [facility] Creatinine 1.1 0.6 - 1.2 mg/dL 08/08/2017 5:23 PM [facility] Sodium 138 136 - 145 mmol/L 08/08/2017 5:23 PM [facility] Potassium 3.9 3.5 - 4.5 mmol/L 08/08/2017 5:23 PM [facility] Chloride 102 98 - 107 mmol/L 08/08/2017 5:23 PM [facility] CO2 27 22 - 29 mmol/L 08/08/2017 5:23 PM [facility] Glucose 106 70 - 115 mg/dL 08/08/2017 5:23 PM [facility] Calcium 9.6 8.4 - 10.2 mg/dL 08/08/2017 5:23 PM [facility] Anion Gap 13 8 - 18 08/08/2017 5:23 PM [facility] BUN/Creatinine Ratio 9 7 - 23 08/08/2017 5:23 PM [facility] Osmolality Calculated 285 270 - 300 mOsm/kg 08/08/2017 5:23 PM [facility] eGFR >60 >60 mL/min/1.7 3 m2 08/08/2017 5:23 PM [facility] Blood BLOOD SPECIMEN / Unknown Venipuncture / Unknown 08/08/2017 4:55 PM CDT 08/08/2017 4:55 PM CDT Hao Mar MD LAB - CHEMISTRY FORTUNATO Rdz Organization Address City/State/ZIP Co de Phone Number [facility] [address] [place] [address] from Last 3 Months or Most Recently Relevant to Health Maintenance Advance Directives * Full Code (Latest Code Status on File) Date Activated Date Inactivated Comments 08/08/2017 9:56 PM 08/12/2017 10:38 AM Care Teams Cocoa Bean Cleaner Relationship Specialty Start Date End Date Scar Olmedo MD [address] [id number] PCP - General Internal Medicine 06/09/17
--- OUTSIDE RECORDS SUMMARY | 2024-03-29 13:44 | XMS_ITS | Encounter Summary ---
Author Organization [facility] Address [address] [place] [address] Care Team Providers Care Wilton Weaver Name Role Phone Scar Olmedo MD Primary Care Provider Reason for Visit * Auth/Cert (Routine) Specialty Diagnoses / Procedures Referred By Contjohnson t Referred To Contact Diagnoses Screening for colon cancer Dyspepsia Screening for colon cancer [Z12.11] Dyspepsia [R10.13] Procedures ME ESOPHAGOGASTRODUODENOSCOPY TRANSORAL DIAGNOSTIC ME COLONOSCOPY FLX DX W/COLLJ SPEC WHEN PFRMD COLONOSCOPY ESOPHAGOGASTRODUODENOSCOPY Referral ID Status Reason Start Date Expiration Date Visits Re quested Visits Authorized [id number] 1 1 Encounter Details Date Type Department Care Team (Late st Contact Info) Description 01/13/2024 Hospital Encounter [facility] [address] [place] [address] Juma Granados MD [address] [place] [address] [address] Social History Tobacco Use Types Packs/Day Years [...] on file 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 Gender Identity Not on file Sexual Orientation Not on file documented as of this encounter Plan of Treatment Not on file documented as of this encounter Visit Diagnoses Diagnosis Dyspepsia Dyspepsia and other specified disorders of function of stomach Screening for colon cancer Special screening for malignant neoplasms, colon documented in this encounter Admitting Diagnoses Diagnosis Screening for colon cancer Special screening for malignant neoplasms, colon Dyspepsia Dyspepsia and other specified disorders of function of stomach documented in this encounter Additional Health Concerns Infection Onset Date Last Indicated Resolved Time C. difficile Comment:Germ watcher auto flagging 04/02/2013 04/02/2013 COVID: Suspected 02/08/2024 02/08/2024 02/08/2024 2:25 PM CNC MILL SET UP OPERATOR documented as of this encounter Care Teams Wilton Weaver Relationship Specialty Start Date End Date Scar Olmedo MD PCP - General 05/30/16 documented as of this encounter
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
== END 2024-03-29 14:25 | disposition short-term general hospital (02) ==
PROVIDERS: Emergency Provider Nurse Practitioner; PCP Internal Medicine
DX: R22.41 Localized swelling, mass and lump, right lower limb (principal); I10 Essential (primary) hypertension; F32.A Depression, unspecified
CPT/HCPCS: 99212; G0463